=== PATIENT | female | born 1985 | race Asian ===

== ENCOUNTER 2020-01-16 22:28 | Inpatient (IN) | payer OTHER ==
[2020-01-16 22:34] VITALS: TEMP 98.1; BMI 35.7
--- NOTE | 2020-01-16 22:37 | PDOC ---
History of Present Illness - General Chief Complaint: Pain Stated Complaint: CHEST PAIN/SOB Time Seen by Provider: 01/16/20 22:36 History Source: Patient - History of Present Illness Initial Comments: 01/16/20 23:18 Ms. Osman is a 34 y/o woman w/hx hypothyroidism p/w one day of acute onset chest pain, generalized weakness, and lightheadedness. She reports noting substernal 8 /10 squeezing chest pain that radiated to her R arm this morning. Over the course of the day she reports worsening weakness requiring her to rest while caring for her children due to lightheadedness. She reports taking omeprazole to control her pain and became concerned when the pain did not resolve. She was unable to sleep secondary to pain, and presented for evaluation. She reports history of "irregular heartbeat". She reports that her pain has since improved, now a 5/10 and no longer radiating anywhere. She does not take any medications for her hypothyroidism, and reports noticing some weight loss over the last two weeks. No hx DVT, PE, no recent travel. PCP: Dr. Manzano Past History - Past Medical History Allergies/Adverse Reactions: Allergies Allergy/AdvReac Type Severity Reaction Status Date / Time No Known Allergies Allergy Verified 01/16/20 22:34 Home Medications: Ambulatory Orders NK [No Known Home Medication] 04/10/15 Asthma: No Cancer: No Cardiac Disorders: No COPD: No Diabetes: No HTN: No Seizures: No Thyroid Disease: Yes - Reproductive History (#): 4 Para: 1 Spontaneous : 2 - Psycho Social/Smoking Cessation Hx Smoking Status: No Smoking History: Never smoked Have you smoked in the past 12 months: No Number of Cigarettes Smoked Daily: 0 Hx Alcohol Use: No Drug/Substance Use Hx: No Substance Use Type: None Hx Substance Use Treatment: No Review of Systems - Review of Systems Able to Perform ROS?: Yes Comments:: 01/16/20 23:26 ROS: GENERAL/CONSTITUTIONAL: Generalized weakness. No fever or chills. HEAD, EYES, EARS, NOSE AND THROAT: No change in vision. No ear pain or discharge. No sore throat. CARDIOVASCULAR: Chest pain. No shortness of breath RESPIRATORY: Cough. No wheezing, or hemoptysis. GASTROINTESTINAL: No nausea, vomiting, diarrhea or constipation. GENITOURINARY: No dysuria, frequency, or change in urination. MUSCULOSKELETAL: No joint or muscle swelling or pain. No neck or back pain. SKIN: No rash NEUROLOGIC: No headache, vertigo, loss of consciousness, or change in strength/ sensation. ENDOCRINE: No increased thirst. No abnormal weight change HEMATOLOGIC/LYMPHATIC: No anemia, easy bleeding, or history of blood clots. ALLERGIC/IMMUNOLOGIC: No hives or skin allergy. *Physical Exam - Vital Signs Last Vital Signs Temp Pulse Resp BP Pulse Ox 98.1 F 97 H 18 138/81 95 01/16/20 22:30 01/16/20 22:30 01/16/20 22:30 01/16/20 22:30 01/16/20 22:30 - Physical Exam 01/16/20 23:27 PE: GENERAL: Awake, alert, and fully oriented, in no acute distress HEAD: No signs of trauma, normocephalic, atraumatic EYES: PERRLA, EOMI, sclera anicteric, conjunctiva clear ENT: Auricles normal inspection, hearing grossly normal, nares patent, oropharynx clear without exudates. Moist mucosa NECK: Normal ROM, supple, no lymphadenopathy, JVD, or masses LUNGS: No distress, speaks full sentences, clear to auscultation bilaterally HEART: Irregularly irregular heartbeat noted on exam. Peripheral pulses normal and equal bilaterally. ABDOMEN: Soft, nontender, normoactive bowel sounds. No guarding, no rebound. No masses EXTREMITIES : Normal inspection, Normal range of motion, no edema. No clubbing or cyanosis NEUROLOGICAL: Cranial nerves II through XII grossly intact. Normal speech, normal gait, no focal sensorimotor deficits SKIN: Warm, Dry, normal turgor, no rashes or lesions noted Heart Score/ECG Review - History History: Slightly suspicious - Electrocardiogram EKG: Normal - Age Age: </= 45 - Risk Factors Risk Factors Heart Score: Yes Positive family hx of cardiac disease, Yes Hx Obesity Based on the list above the patient has:: 1-2 risk factors - Troponin Troponin: </= normal limit - Score Heart Score - Total: 1 - ECG Intrepretation Rhythm: Irregularly Irregular - [place]: Normal - QRS Measured at (milliseconds): 86 - ST and T Comment:: QTc - 428 - ECG Impressions Normal ECG: No Non-specific ST Elevation: No Ischemic Changes: No ED Treatment Course - LABORATORY CBC & Chemistry Diagram: 01/16/20 22:50 01/16/20 22:50 Medical Decision Making - Medical Decision Making 01/16/20 23:30 34F w/hx hypothyroidism, afib p/w one day of substernal chest pain and generalized weakness, improving. Ddx includes ACS, thyroid derangement, electrolyte abnormality, anemia. Plan: CBC CMP Cardiac profile EKG CXR TSH Acetaminophen 1g po Dispo: Pending labs, reassessment. HEART Score: 1 01/16/20 23:44 Patient signed out during shift change Pending: Labs Plan for likely discharge pending results 01/16/20 23:59 CBC - wnl CMP - wnl Troponin - negative TSH - wnl BNP - wnl 01/17/20 00:20 UA, hcg pending. Patient signed out to Dr. Boggs Discharge - Discharge Information Problems reviewed: Yes Clinical Impression/Diagnosis: Chest pain Qualifiers: Chest pain type: unspecified Qualified Code(s): R07.9 - Chest pain, unspecified Condition: Stable Disposition: HOME - Admission No - Follow up/Referral Referrals: Sidney Manzano MD [Primary Care Provider] - - Patient Discharge Instructions Patient Printed Discharge Instructions: DI for Atypical Chest Pain, DI for Chest Pain Additional Instructions: You were seen in the ER for chest pain. Your bloodwork was normal. Your EKG was normal. Please be sure to follow up with your primary care provider as soon as possible, in the next 2-3 days. Please return to the ER if you develop weakness , trouble breathing, worsening chest pain, or any other symptoms that are concerning to you. - Post Discharge Activity
[2020-01-16] MEDS ORDERED: ACETAMINOPHEN 500 MG TABLET (FP) PO ONE (23:02)
[2020-01-16 23:13] LABS: BASO % 0.8 % (0-2.0); EOS % 7.2 % (0-4.5); HEMATOCRIT 36.1 % (32.4-45.2); HEMOGLOBIN 11.5 GM/dL (10.7-15.3); LYMPH % 31.1 % (8-40); MCH 24.4 pg (25.7-33.7); MCHC 31.9 g/dl (32.0-36.0); MEAN CELL VOLUME 76.3 fl (80-96); MEAN PLT VOLUME 10.1 fl (7.5-11.1); MONO % 5.3 % (3.8-10.2); NEUT % 55.6 % (42.8-82.8); PLATELET COUNT 297 K/MM3 (134-434); RBC 4.73 M/mm3 (3.60-5.2); RDW 14.9 % (11.6-15.6); WHITE BLOOD COUNT 11.6 K/mm3 (4.0-10.0)
--- NOTE | 2020-01-16 23:37 | PDOC ---
Attending Attestation - Resident Resident Name: RonirinacarlaMichael - ED Attending Attestation I have performed the following: I have examined & evaluated the patient, The case was reviewed & discussed with the resident, I agree w/resident's findings & plan - HPI HPI: 01/17/20 01:04 Pt comes with CP that began this AM 01/17/20 01:47 Pt comes with emotional stress at home. States that she cares for her kids 12yo and 6yo and her older parents. She has PMHx of HTN, diet controlled; She had high HbA1cs that have been under control with diet; pt has + fam hx of HTN She has Polycystic ovaries and she is obese. Pt states that she feels a pressure in the center of her chest and she has SOB. She has pinched nerves in her lumbar spine. She has been hearing a whisting noise when she breathes and she has some right sided wheeze which clears with deep breaths No fever or chills Pt feels fatigued and she is unable to sleep. She is able to eat and move bowels. - Physicial Exam PE: 01/17/20 01:43 obese afebrile HEENT Normal; heart normal Lungs + wheeze on the left side no flank pain no abd pain no pitting edema no calf trenderness neuro intact. - Medical Decision Making 01/17/20 00:22 chem is normal WBC is elevated; but hb/hct normal 01/17/20 19:33 Pt will be admitted to [facility]; PMD Dr. Griffin Heart Score/ECG Review - History History: Moderately suspicious - Electrocardiogram EKG: Non specific repolarization disturbance - Age Age: </= 45 - Risk Factors Risk Factors Heart Score: Yes Hx Hypertension, Yes Positive family hx of cardiac disease, Yes Hx Obesity Based on the list above the patient has:: >/=3 risk factors or Hx atherosclerotic disease - Troponin Troponin: </= normal limit - Score Heart Score - Total: 4 - ECG Intrepretation Rhythm: Regular Rhythm - P and LA Prominent R with upright T in V1 (true posterior CT): No Delta Wave(s) Present: No WPW: No - QRS Poor R Wave Progression: No Q Wave Present: No - ST and T Early Repolarization: Yes Non Specific ST-T Wave changes: Yes Flattened T Waves: Yes - ECG Impressions Normal ECG: Yes Non-specific ST Elevation: No Ischemic Changes: No Torsades theodore Pointes: No WPW: No
[2020-01-16 23:51] LABS: ALBUMIN 3.4 g/dl (3.4-5.0); ALK PHOS 85 U/L (45-117); ANION GAP 7 MMOL/L (8-16); BILIRUBIN,TOTAL 0.3 mg/dL (0.2-1); BLOOD UREA NITROGEN 16.1 mg/dL (7-18); CALCIUM 8.4 mg/dL (8.5-10.1); CHLORIDE 106 mmol/L (98-107); CO2 25 mmol/L (21-32); GLUCOSE,RANDOM 97 mg/dL (74-106); N-TERMINAL BNP 14.6 pg/ml (5-125); SGOT/AST 16 U/L (15-37); SGPT/ALT 25 U/L (13-61); SODIUM 138 mmol/L (136-145); TOT PROT 7.6 g/dl (6.4-8.2)
[2020-01-17] MEDS ORDERED: ACETAMINOPHEN 500 MG TABLET (FP) ONE (00:01)
[2020-01-17 00:29] LABS: PH,URINE 5.5 (5.0-8.0); URINE APPEARANCE CLEAR; URINE BILIRUBIN NEGATIVE (NEGATIVE); URINE COLOR YELLOW; URINE GLUCOSE (UA) NEGATIVE (NEGATIVE); URINE KETONE NEGATIVE (NEGATIVE); URINE LEUK ESTERASE NEGATIVE (NEGATIVE); URINE NITRITE NEGATIVE (NEGATIVE); URINE PROTEIN NEGATIVE (NEGATIVE); URINE UROBILINOGEN 0.2 mg/dL (0.2-1.0)
--- NOTE | 2020-01-17 01:01 | PDOC ---
*Physical Exam - Vital Signs Last Vital Signs Temp Pulse Resp BP Pulse Ox 98.1 F 97 H 18 138/81 95 01/16/20 22:30 01/16/20 22:30 01/16/20 22:30 01/16/20 22:30 01/16/20 22:30 ED Treatment Course - LABORATORY CBC & Chemistry Diagram: 01/16/20 22:50 01/16/20 22:50 - ADDITIONAL ORDERS Additional order review: Laboratory Results 01/16/20 22:50 Sodium 138 Potassium 4.0 Chloride 106 Carbon Dioxide 25 Anion Gap 7 L BUN 16.1 Creatinine 1.0 Est GFR (CKD-EPI)AfAm 85.12 Est GFR (CKD-EPI)NonAf 73.45 Random Glucose 97 Calcium 8.4 L Total Bilirubin 0.3 AST 16 ALT 25 Alkaline Phosphatase 85 Creatine Kinase 108 Troponin I < 0.02 B-Natriuretic Peptide 14.6 Total Protein 7.6 Albumin 3.4 TSH 3.11 01/16/20 22:50 RBC 4.73 MCV 76.3 L MCHC 31.9 L RDW 14.9 MPV 10.1 Neutrophils % 55.6 D Lymphocytes % 31.1 D Monocytes % 5.3 Eosinophils % 7.2 H D Basophils % 0.8 - Medications Given in the ED: ED Medications Discontinued Medications Generic Name Dose Route Start Last Admin Trade Name Ana PRN Reason Stop Dose Admin Acetaminophen 1,000 mg 01/16/20 23:02 01/17/20 00:11 Tylenol - PO 01/16/20 23:03 1,000 mg ONCE ONE Administration Medical Decision Making - Medical Decision Making 01/17/20 00:27 Pt received on sign out from Dr. Merrill. 01/17/20 01:44 Labs and UA reviewed. Laboratory Last Values WBC 11.6 K/mm3 (4.0-10.0) H 01/16/20 22:50 RBC 4.73 M/mm3 (3.60-5.2) 01/16/20 22:50 Hgb 11.5 GM/dL (10.7-15.3) 01/16/20 22:50 Hct 36.1 % (32.4-45.2) 01/16/20 22:50 MCV 76.3 fl (80-96) L 01/16/20 22:50 MCH 24.4 pg (25.7-33.7) L 01/16/20 22:50 MCHC 31.9 g/dl (32.0-36.0) L 01/16/20 22:50 RDW 14.9 % (11.6-15.6) 01/16/20 22:50 Plt Count 297 K/MM3 (134-434) 01/16/20 22:50 MPV 10.1 fl (7.5-11.1) 01/16/20 22:50 Absolute Neuts (auto) 6.4 K/mm3 (1.5-8.0) 01/16/20 22:50 Neutrophils % 55.6 % (42.8-82.8) D 01/16/20 22:50 Lymphocytes % 31.1 % (8-40) D 01/16/20 22:50 Monocytes % 5.3 % (3.8-10.2) 01/16/20 22:50 Eosinophils % 7.2 % (0-4.5) H D 01/16/20 22:50 Basophils % 0.8 % (0-2.0) 01/16/20 22:50 Nucleated RBC % 0 % (0-0) 01/16/20 22:50 Sodium 138 mmol/L (136-145) 01/16/20 22:50 Potassium 4.0 mmol/L (3.5-5.1) 01/16/20 22:50 Chloride 106 mmol/L (98-107) 01/16/20 22:50 Carbon Dioxide 25 mmol/L (21-32) 01/16/20 22:50 Anion Gap 7 MMOL/L (8-16) L 01/16/20 22:50 BUN 16.1 mg/dL (7-18) 01/16/20 22:50 Creatinine 1.0 mg/dL (0.55-1.3) 01/16/20 22:50 Est GFR (CKD-EPI)AfAm 85.12 01/16/20 22:50 Est GFR (CKD-EPI)NonAf 73.45 01/16/20 22:50 POC Glucometer 90 UNITS (80-120) 01/17/20 01:14 Random Glucose 97 mg/dL (74-106) 01/16/20 22:50 Calcium 8.4 mg/dL (8.5-10.1) L 01/16/20 22:50 Total Bilirubin 0.3 mg/dL (0.2-1) 01/16/20 22:50 AST 16 U/L (15-37) 01/16/20 22:50 ALT 25 U/L (13-61) 01/16/20 22:50 Alkaline Phosphatase 85 U/L (45-117) 01/16/20 22:50 Creatine Kinase 108 U/L (26-192) 01/16/20 22:50 Troponin I < 0.02 ng/ml (0.00-0.05) 01/16/20 22:50 B-Natriuretic Peptide 14.6 pg/ml (5-125) 01/16/20 22:50 Total Protein 7.6 g/dl (6.4-8.2) 01/16/20 22:50 Albumin 3.4 g/dl (3.4-5.0) 01/16/20 22:50 TSH 3.11 uIU/ml (0.358-3.74) 01/16/20 22:50 Urine Color Yellow 01/17/20 00:15 Urine Appearance Clear 01/17/20 00:15 Urine pH 5.5 (5.0-8.0) 01/17/20 00:15 Ur Specific [place] 1.025 (1.010-1.035) 01/17/20 00:15 Urine Protein Negative (NEGATIVE) 01/17/20 00:15 Urine Glucose (UA) Negative (NEGATIVE) 01/17/20 00:15 Urine Ketones Negative (NEGATIVE) 01/17/20 00:15 Urine Blood Negative (NEGATIVE) 01/17/20 00:15 Urine Nitrite Negative (NEGATIVE) 01/17/20 00:15 Urine Bilirubin Negative (NEGATIVE) 01/17/20 00:15 Urine Urobilinogen 0.2 mg/dL (0.2-1.0) 01/17/20 00:15 Ur Leukocyte Esterase Negative (NEGATIVE) 01/17/20 00:15 Urine HCG, Qual Negative 01/17/20 00:15 01/17/20 02:49 CXR negative for acute intra thoracic process. 01/17/20 05:08 D/w Dr. Griffin who accepts the pt for admission. Discharge - Discharge Information Problems reviewed: Yes Clinical Impression/Diagnosis: Chest pain Qualifiers: Chest pain type: unspecified Qualified Code(s): R07.9 - Chest pain, unspecified Condition: Good Disposition: HOME - Admission Yes - Follow up/Referral - Patient Discharge Instructions - Post Discharge Activity
[2020-01-17] MEDS ORDERED: KETOROLAC TROMETHAMINE 30 MG/1 ML VIAL IVPUSH ONE (01:41)
[2020-01-17] MEDS ORDERED: ASPIRIN 81 MG CHEWABLE TABLETS PO ONE (01:41)
[2020-01-17] MEDS ORDERED: ASPIRIN 81 MG CHEWABLE TABLETS ONE ×2 (02:22→09:04)
[2020-01-17] MEDS ORDERED: KETOROLAC TROMETHAMINE 30 MG/1 ML VIAL ONE (02:23)
[2020-01-17 06:20] VITALS: BP 121/82; PULSE 91
[2020-01-17] MEDS ORDERED: HEPARIN NA (PORCINE) 5,000 UNITS/ML 1ML VIAL ONE (09:04)
[2020-01-17] MEDS ORDERED: ASPIRIN COATED 81 MG TABLET.EC PO SCH (10:00)
[2020-01-17] MEDS ORDERED: HEPARIN NA (PORCINE) 5,000 UNITS/ML 1ML VIAL SQ SCH (10:00)
--- NOTE | 2020-01-17 12:03 | CON.CARD ---
Consult Consult Specialty:: Cardiology for Dr. Hooker Referred by:: Nick Griffin MD Reason for Consultation:: Chest pain - History of Present Illness Chief Complaint: Chest pain History of Present Illness: Ms. Osman is a 34 y/o woman w/hx hypothyroidism p/w one day of acute onset chest pain, generalized weakness, wheeze, and lightheadedness. She reports noting substernal 8/10 squeezing chest pain that radiated to her R arm this morning. Over the course of the day she reports worsening weakness requiring her to rest while caring for her children due to lightheadedness. She reports taking omeprazole to control her pain and became concerned when the pain did not resolve. She was unable to sleep secondary to pain, and presented for evaluation. She reports that her pain has since improved, now a 5/10 and no longer radiating anywhere. She does not take any medications for her hypothyroidism, and reports noticing some weight loss over the last two weeks. No hx DVT, PE, no recent travel. Previous h/o asthma. PCP: Dr. Manzano - History Source History Provided By: Patient Limitations to Obtaining History: No Limitations - Past Medical History ...LMP: 12/10/12 - Alcohol/Substance Use Hx Alcohol Use: No - Smoking History Smoking history: Never smoked Have you smoked in the past 12 months: No Aproximately how many cigarettes per day: 0 Home Medications - Allergies Allergies/Adverse Reactions: Allergies Allergy/AdvReac Type Severity Reaction Status Date / Time No Known Allergies Allergy Verified 01/16/20 22:34 - Home Medications Home Medications: Ambulatory Orders NK [No Known Home Medication] 04/10/15 Review of Systems - Review of Systems Cardiovascular: reports: Chest Pain Respiratory: reports: Wheezing Vital Signs: Vital Signs Temperature 98.1 F 01/16/20 22:30 Pulse Rate 91 H 01/17/20 06:20 Respiratory Rate 18 01/17/20 06:20 Blood Pressure 121/82 01/17/20 06:20 O2 Sat by Pulse Oximetry (%) 98 01/17/20 06:20 Constitutional: Yes: No Distress, Calm Neck: Yes: Supple Respiratory: Yes: Regular, Diminished Gastrointestinal: Yes: Normal Bowel Sounds, Soft, Abdomen, Obese Cardiovascular: Yes: Regular Rate and Rhythm JVD: No Carotid Bruit: No Heart Sounds: Yes: S1, S2 Edema: No - Other Data Labs, Other Data: CBC, BMP 01/16/20 22:50 01/16/20 22:50 Troponin, BNP 01/16/20 22:50 Troponin I < 0.02 B-Natriuretic Peptide 14.6 Troponin, BNP 01/16/20 22:50 Troponin I < 0.02 B-Natriuretic Peptide 14.6 NSR @ 73 Ejection Fraction %: LVEF > or = 40 % Imaging - Results Chest X-ray: Report Reviewed (NAD) Problem List - Problems (1) Hypothyroidism Code(s): E03.9 - HYPOTHYROIDISM, UNSPECIFIED Qualifiers: Hypothyroidism type: unspecified Qualified Code(s): E03.9 - Hypothyroidism , unspecified (2) PCOS (polycystic ovarian syndrome) Code(s): E28.2 - POLYCYSTIC OVARIAN SYNDROME (3) Chest pain Code(s): R07.9 - CHEST PAIN, UNSPECIFIED Qualifiers: Chest pain type: unspecified Qualified Code(s): R07.9 - Chest pain, unspecified Assessment/Plan 1. Chest pain syndrome, possible bronchospasm, ruling out VT 2. Hypothyroidism 3. PCOS P: 1. Ruling out VT 2. Trial of bronchodilators and assess for clinical response 3. May undergo outpatient CV testing if ruled out VT and no response to nebs 4. Thank you for consultative opportunity
[2020-01-17] MEDS ORDERED: ALBUTEROL SO4 0.083% IH SOL 2.5 MG/3 ML VIAL.NEB. NEB ONE ×2 (12:34→12:47)
[2020-01-17 12:46] LABS: CHOLESTEROL 147 mg/dL (50-200); HDL CHOLESTEROL 44 mg/dL (40-60); LDL CHOLESTEROL (ONLY SJRH) 83 mg/dL (5-100); TRIGLYCERIDES 192 mg/dL (0-150)
--- NOTE | 2020-01-17 13:25 | EKG ---
Test Reason : Blood Pressure : / mmHG Vent. Rate : 079 BPM Atrial Rate : 079 BPM P-R Int : 122 ms QRS Dur : 086 ms QT Int : 374 ms P-R-T Axes : 151 069 010 degrees QTc Int : 428 ms UNUSUAL P AXIS, POSSIBLE ECTOPIC ATRIAL RHYTHM CANNOT RULE OUT SEPTAL INFARCT , AGE UNDETERMINED INDETERMINATE AXIS ABNORMAL ECG NO PREVIOUS ECGS AVAILABLE Confirmed by ANDREA HONEYCUTT MD ([id number]) on 01/17/2020 1:25:15 PM Referred By: Confirmed By:ANDREA HONEYCUTT MD
--- NOTE | 2020-01-17 15:14 | HP ---
Admitting History and Physical - Past Medical History ...LMP: 12/10/12 - Smoking History Smoking history: Never smoked Have you smoked in the past 12 months: No Aproximately how many cigarettes per day: 0 - Alcohol/Substance Use Hx Alcohol Use: No Home Medications - Allergies Allergies/Adverse Reactions: Allergies Allergy/AdvReac Type Severity Reaction Status Date / Time No Known Allergies Allergy Verified 01/16/20 22:34 - Home Medications Home Medications: Ambulatory Orders NK [No Known Home Medication] 04/10/15 Physical Examination Vital Signs: Vital Signs Temperature 98.1 F 01/16/20 22:30 Pulse Rate 91 H 01/17/20 06:20 Respiratory Rate 18 01/17/20 06:20 Blood Pressure 121/82 01/17/20 06:20 O2 Sat by Pulse Oximetry (%) 98 01/17/20 06:20 Labs: CBC, BMP 01/16/20 22:50 01/16/20 22:50
== END 2020-01-17 15:29 | disposition home or self-care (01) | DRG 144 ==
LOC: JER 22:28 → JERBED 01-17 05:07
PROVIDERS: ADMIT Internal Medicine; ATTEND Internal Medicine
DX: J98.01 Acute bronchospasm (principal); R07.89 Other chest pain; E03.9 Hypothyroidism, unspecified; E66.9 Obesity, unspecified; Z68.35 Body mass index [BMI] 35.0-35.9, adult; E28.2 Polycystic ovarian syndrome
CPT/HCPCS: 36415; 71045-TC-FY; 80053; 80061; 81003; 82550; 82962; 83036; 83721; 83880; 84443; 84484; 84703; 85025; 93005; 93010; 99285-25

== ENCOUNTER 2022-05-27 23:44 | Emergency (ER) | payer OTHER ==
[2022-05-28 00:13] VITALS: BP 134/89; PULSE 77; TEMP 97.8; BMI 38.6
[2022-05-28] MEDS ORDERED: ACETAMINOPHEN INJECTION 100 ML IVPB ONE (02:41)
[2022-05-28] MEDS ORDERED: ACETAMINOPHEN 1000 MG/100 ML BAG IVPB ONE (02:41)
[2022-05-28 03:07] LABS: BASO % 0.8 % (0-2.0); EOS % 4.5 % (0-4.5); HEMOGLOBIN 10.3 GM/dL (10.7-15.3); LYMPH % 38.8 % (8-40); MCH 22.9 pg (25.7-33.7); MCHC 32.1 g/dl (32.0-36.0); MEAN CELL VOLUME 71.3 fl (80-96); MEAN PLT VOLUME 9.4 fl (7.5-11.1); MONO % 7.8 % (3.8-10.2); NEUT % 48.1 % (42.8-82.8); PLATELET COUNT 301 10^3/uL (134-434); RBC 4.49 M/mm3 (3.60-5.2); RDW 16.4 % (11.6-15.6)
[2022-05-28 03:09] LABS: PH,URINE 5.5 (5.0-8.0); URINE APPEARANCE CLEAR; URINE BILIRUBIN NEGATIVE (NEGATIVE); URINE COLOR YELLOW; URINE GLUCOSE (UA) NEGATIVE (NEGATIVE); URINE KETONE NEGATIVE (NEGATIVE); URINE LEUK ESTERASE NEGATIVE (NEGATIVE); URINE NITRITE NEGATIVE (NEGATIVE); URINE PROTEIN NEGATIVE (NEGATIVE); URINE UROBILINOGEN 0.2 mg/dL (0.2-1.0)
[2022-05-28 03:19] LABS: ALBUMIN 3.5 g/dl (3.4-5.0)
[2022-05-28 03:20] LABS: BLOOD UREA NITROGEN 19.4 mg/dL (7-18)
[2022-05-28 03:23] LABS: CREATININE 0.8 mg/dL (0.55-1.3)
[2022-05-28 03:24] LABS: BILIRUBIN,TOTAL 0.3 mg/dL (0.2-1); TOT PROT 7.4 g/dl (6.4-8.2)
[2022-05-28 03:28] LABS: N-TERMINAL BNP 20.5 pg/ml (5-125)
[2022-05-28] MEDS ORDERED: KETOROLAC TROMETHAMINE 15 MG/ML VIAL IVPUSH ONE (08:45)
[2022-05-28] MEDS ORDERED: KETOROLAC TROMETHAMINE 15 MG/ML VIAL ONE (09:01)
== END 2022-05-28 11:28 | disposition home or self-care (01) ==
LOC: JER 23:44
DX: R10.12 Left upper quadrant pain (principal)
CPT/HCPCS: 36415; 74176-TC; 76830-TC; 80053; 81003; 83880; 84443; 84703; 85025; 87086; 87186; 99285-25

== ENCOUNTER 2023-01-22 18:54 | Emergency (ER) | payer OTHER ==
[2023-01-22 20:03] VITALS: BP 138/91; PULSE 97; RESP 20; TEMP 97.9; BMI 38.2
[2023-01-22] MEDS ORDERED: METHOCARBAMOL 500 MG TABLET PO ONE (21:52)
[2023-01-22] MEDS ORDERED: ACETAMINOPHEN 500 MG TABLET (FP) PO ONE (21:52)
[2023-01-22] MEDS ORDERED: ACETAMINOPHEN 500 MG TABLET (FP) ONE (22:06)
[2023-01-22] MEDS ORDERED: METHOCARBAMOL 500 MG TABLET ONE (22:06)
[2023-01-23] MEDS ORDERED: oxyCODONE HCL 5 MG TABLET PO ONE (00:06)
== END 2023-01-23 01:05 | disposition home or self-care (01) ==
LOC: JER 18:54
DX: S09.90XA Unspecified injury of head, initial encounter (principal); S40.022A Contusion of left upper arm, initial encounter; M25.511 Pain in right shoulder; W01.0XXA Fall on same level from slipping, tripping and stumbling without subsequent striking against object, initial encounter
CPT/HCPCS: 70450-TC; 72100-TC-FY; 72125-TC; 99284-25

== ENCOUNTER 2024-10-01 16:37 | Emergency (ER) | payer OTHER ==
[2024-10-01 16:44] VITALS: RESP 18; BMI 38.6
[2024-10-01] MEDS ORDERED: ONDANSETRON 4 MG/2 ML VIAL ONE (18:36)
[2024-10-01] MEDS ORDERED: KETOROLAC TROMETHAMINE 30 MG/1 ML VIAL ONE (18:36)
[2024-10-01] MEDS: KETOROLAC TROMETHAMINE 30 MG/1 ML VIAL IVPUSH ONE (18:38)
[2024-10-01] MEDS: ONDANSETRON 4 MG/2 ML VIAL IVPUSH ONE (18:41)
[2024-10-01 19:00] LABS: BASO % 0.8 % (0-2.0); EOS % 5.6 % (0-4.5); HEMATOCRIT 33.8 % (32.4-45.2); HEMOGLOBIN 11.2 GM/dL (10.7-15.3); LYMPH % 29.1 % (8-40); MCH 25.1 pg (25.7-33.7); MCHC 33.1 g/dl (32.0-36.0); MEAN CELL VOLUME 75.8 fl (80-96); MEAN PLT VOLUME 9.5 fl (7.5-11.1); MONO % 7.4 % (3.8-10.2); NEUT % 57.1 % (42.8-82.8); PLATELET COUNT 331 10^3/uL (134-434); RBC 4.46 M/mm3 (3.60-5.2); RDW 15.4 % (11.6-15.6); WHITE BLOOD COUNT 9.2 K/mm3 (4.0-10.0)
[2024-10-01 19:22] LABS: POTASSIUM 4.2 mmol/L (3.5-5.1)
[2024-10-01 19:28] LABS: ALBUMIN 3.1 g/dl (3.4-5.0); CALCIUM 9.9 mg/dL (8.5-10.1)
[2024-10-01 19:31] LABS: CREATININE 0.8 mg/dL (0.55-1.3)
[2024-10-01 19:33] LABS: BILIRUBIN,TOTAL 0.3 mg/dL (0.2-1)
[2024-10-01 20:14] LABS: HIV INTERPRETATION NEGATIVE (NEGATIVE)
[2024-10-01 20:20] LABS: URINE APPEARANCE CLEAR; URINE BILIRUBIN NEGATIVE (NEGATIVE); URINE COLOR YELLOW; URINE GLUCOSE (UA) NEGATIVE (NEGATIVE); URINE KETONE NEGATIVE (NEGATIVE); URINE LEUK ESTERASE NEGATIVE (NEGATIVE); URINE NITRITE NEGATIVE (NEGATIVE); URINE PROTEIN NEGATIVE (NEGATIVE); URINE UROBILINOGEN 0.2 mg/dL (0.2-1.0)
[2024-10-01 20:24] LABS: INR 1.04 (0.83-1.09); PROTHROMBIN TIME (PATIENT) 11.7 SEC (9.7-13.0)
[2024-10-01 20:25] LABS: ACTIVATED PTT 34.8 SECONDS (25.2-36.5)
[2024-10-01 22:46] VITALS: BP 130/80; PULSE 85; TEMP 98.3
[2024-10-02] MEDS ORDERED: CYCLOBENZAPRINE HCL 10 MG TABLET (FP) ONE (00:06)
[2024-10-02] MEDS ORDERED: KETOROLAC TROMETHAMINE 30 MG/1 ML VIAL ONE (00:06)
[2024-10-02] MEDS: KETOROLAC TROMETHAMINE 30 MG/1 ML VIAL IVPUSH ONE (00:24)
[2024-10-02] MEDS: CYCLOBENZAPRINE HCL 10 MG TABLET (FP) PO ONE (00:24)
== END 2024-10-02 00:35 | disposition home or self-care (01) ==
LOC: JER 16:37
PROC: 3E0333Z Introduction of Anti-inflammatory into Peripheral Vein, Percutaneous Approach (ICD-10-PCS; principal; 2024-10-01)
PROC: 3E0333Z Introduction of Anti-inflammatory into Peripheral Vein, Percutaneous Approach (ICD-10-PCS; 2024-10-02)
DX: M62.838 Other muscle spasm (principal); R10.11 Right upper quadrant pain; R11.0 Nausea; K59.00 Constipation, unspecified
CPT/HCPCS: 36415; 71046-TC-FY; 71275-TC; 74177-TC; 76705-TC; 80053; 81003; 83690; 84703; 85025; 85379; 85610; 85730; 86803; 87086; 87389; 99285-25; Q9967

== ENCOUNTER 2024-10-27 13:58 | Emergency (ER) | payer OTHER ==
[2024-10-27 14:08] VITALS: BP 129/83; PULSE 93; RESP 17; TEMP 98.2; BMI 38.6
[2024-10-27] MEDS ORDERED: CLINDAMYCIN HCL 150 MG CAPSULE (FP) ONE (15:03)
[2024-10-27] MEDS ORDERED: DIPHTH,PERTUSS(ACELL),TET 0.5 ML DISP.SYRIN IM ONE (15:04)
[2024-10-27] MEDS: CLINDAMYCIN HCL 300 MG CAPSULE PO ONE (15:11)
[2024-10-27] MEDS: DIPHTH,PERTUSS(ACELL),TET 0.5 ML DISP.SYRIN IM ONE (15:11)
== END 2024-10-27 15:24 | disposition home or self-care (01) ==
LOC: JERFT 13:58
PROC: 3E0234Z Introduction of Serum, Toxoid and Vaccine into Muscle, Percutaneous Approach (ICD-10-PCS; principal; 2024-10-27)
DX: S91.312A Laceration without foreign body, left foot, initial encounter (principal); W01.0XXA Fall on same level from slipping, tripping and stumbling without subsequent striking against object, initial encounter; Z23 Encounter for immunization
CPT/HCPCS: 90471; 90715; 99284-25